=== PATIENT | female | born 1990 | race Caucasian/White ===

== ENCOUNTER 2022-02-18 13:33 | Emergency (ER) | payer OTHER ==
[2022-02-18 13:47] VITALS: BP 117/64; PULSE 92; RESP 18; TEMP 99; BMI 22.3
== END 2022-02-18 14:18 | disposition home or self-care (01) ==
LOC: FER 13:33
DX: I80.01 Phlebitis and thrombophlebitis of superficial vessels of right lower extremity (principal)
CPT/HCPCS: 99281-25